=== PATIENT | male | born 1985 | race Two or more races ===

== ENCOUNTER 2017-07-08 03:13 | Emergency (ER) | payer MEDICAID ==
[~2017-07-08] VITALS: Ht 170.2 cm; Wt 113.0 kg
[2017-07-08 03:17] VITALS: BP 162/82
== END 2017-07-08 04:45 | disposition home or self-care (01) ==
LOC: ER 03:13
DX: T40.7X1A Poisoning by cannabis (derivatives), accidental (unintentional), initial encounter (principal); Y92.89 Other specified places as the place of occurrence of the external cause; I10 Essential (primary) hypertension
CPT/HCPCS: 99283